=== PATIENT | female | born 1990 | race Two or more races ===

== ENCOUNTER 2022-07-28 01:13 | Inpatient (IN) | payer OTHER ==
[2022-07-28] MEDS ORDERED: Misoprostol 25 MCG (1/4 of 100 MCG) Tab ONE (07:59)
[2022-07-28] MEDS ORDERED: Sodium Chloride 0.9% 10 ML Syringe FLUSH PRN (08:04)
[2022-07-28] MEDS ORDERED: Nalbuphine HCl 10 MG/ 1ML Amp IVPUSH PRN (08:04)
[2022-07-28] MEDS ORDERED: Oxytocin/Lactated Ringers 10 UNIT/1,000 ML BAG IV SCH ×3 (08:15→16:00)
[2022-07-28] MEDS ORDERED: Misoprostol 25 MCG (1/4 of 100 MCG) Tab VAG ONE (12:07)
[2022-07-28] MEDS: Misoprostol 25 MCG (1/4 of 100 MCG) Tab VAG SCH (12:18)
[2022-07-28] MEDS: Lactated Ringers 1,000 ML IV SCH ×3 (15:49→21:00)
[2022-07-28] MEDS: Sodium Chloride 0.9% 10 ML Syringe FLUSH SCH (15:51)
[2022-07-28] MEDS ORDERED: Bupivacaine/fentaNYL/NS 100 ML Bag EPIDUR PRN (18:15)
[2022-07-28] MEDS ORDERED: ePHEDrine 50 MG/ML SDV IVPUSH PRN (18:15)
[2022-07-28] MEDS ORDERED: diphenhydrAMINE 50 MG/ML SDV IVPUSH PRN (18:15)
[2022-07-28] MEDS: fentaNYL 100 MCG/2 ML SDV EPIDUR PRN ×2 (18:40→22:38)
[2022-07-28] MEDS ORDERED: Ondansetron 4 MG/2 ML SDV IVPUSH ONE (22:17)
[2022-07-28] MEDS ORDERED: Ondansetron 4 MG/2 ML SDV ONE (22:21)
[2022-07-28] MEDS ORDERED: Dexmedetomidine 200 MCG/2 ML SDV ONE (22:25)
[2022-07-29] MEDS ORDERED: Lidocaine 1.5% with EPINEPHrine 1:200,000 5 ML Amp ONE
[2022-07-29] MEDS ORDERED: Docusate Sodium 100 MG Cap PO PRN (01:28)
[2022-07-29] MEDS ORDERED: Benzocaine/Menthol 20%-0.5% Spray 78 GM Cannister TOP PRN (01:28)
[2022-07-29] MEDS ORDERED: Acetaminophen 325 MG Tab PO PRN (01:28)
[2022-07-29] MEDS ORDERED: Witch Hazel Medicated Pads 40/Jar TOP PRN (01:28)
[2022-07-29] MEDS ORDERED: Ibuprofen 600 MG Tab PO PRN (01:28)
[2022-07-29] MEDS: Misoprostol 25 MCG (1/4 of 100 MCG) Tab VAG SCH ×2 (19:51→19:52)
[2022-07-29] MEDS: Sodium Chloride 0.9% 10 ML Syringe FLUSH SCH (19:52)
== END 2022-07-30 12:41 | disposition home or self-care (01) | DRG 807 ==
LOC: JD.OB 01:13 → OBSVTOIN 07-29 01:13 → JD.OB 07-29 01:14
PROVIDERS: ADMIT Obstetrics & Gynecology; ATTEND Obstetrics & Gynecology
PROC: 10E0XZZ Delivery of Products of Conception, External Approach (ICD-10-PCS; principal; 2022-07-29)
PROC: 0KQM0ZZ Repair Perineum Muscle, Open Approach (ICD-10-PCS; 2022-07-29)
PROC: 10907ZC Drainage of Amniotic Fluid, Therapeutic from Products of Conception, Via Natural or Artificial Opening (ICD-10-PCS; 2022-07-29)
PROC: 3E033VJ Introduction of Other Hormone into Peripheral Vein, Percutaneous Approach (ICD-10-PCS; 2022-07-29)
PROC: 3E0P7VZ Introduction of Hormone into Female Reproductive, Via Natural or Artificial Opening (ICD-10-PCS; 2022-07-29)
PROC: 3E0R3BZ Introduction of Anesthetic Agent into Spinal Canal, Percutaneous Approach (ICD-10-PCS; 2022-07-29)
PROC: 00HU33Z Insertion of Infusion Device into Spinal Canal, Percutaneous Approach (ICD-10-PCS; 2022-07-29)
DX: O48.0 Post-term pregnancy (principal); Z37.0 Single live birth; O70.1 Second degree perineal laceration during delivery; Z3A.40 40 weeks gestation of pregnancy
CPT/HCPCS: 01967; 36415; 51701; 51702; 59020; 59409; 85025; 86592; A9270-GY; J2405; J2590; J3010; J3490; J7120

== ENCOUNTER 2024-03-25 14:32 | Inpatient (IN) | payer BC ==
[~2024-03-25 14:32] MED LIST: Bupivacaine 0.25% 10 ML SDV ONE
[2024-03-25] MEDS ORDERED: Acetaminophen 325 MG Tab PO PRN (14:58)
[2024-03-25] MEDS ORDERED: Calcium Carbonate 500 MG Tab.Chew PO PRN (14:58)
[2024-03-25] MEDS ORDERED: Lidocaine 1% 50 ML MDV INJECT PRN (14:58)
[2024-03-25] MEDS ORDERED: Oxytocin/Lactated Ringers 30 UNIT/500 ML BAG IV SCH (15:00)
[2024-03-25] MEDS: Lactated Ringers 1,000 ML IV SCH (15:33)
[2024-03-25] MEDS: Ampicillin 2 GM in Sodium Chloride 0.9% 100 ML IV ONE (15:33)
[2024-03-25 15:35] LABS: BASOPHILS PERCENT AUTO 0.3 % (0.0-1.0); EOSINOPHILS PERCENT AUTO 0.3 % (0.0-6.0); HEMATOCRIT 39.9 % (37.0-47.0); HEMOGLOBIN 13.3 gm/dl (12.0-16.0); IMMATURE GRAN ABSOLUTE AUTO 0.05 K/mm3 (0.00-0.05); IMMATURE GRAN PERCENT AUTO 0.4 % (0.0-0.4); LYMPHOCYTES ABSOLUTE AUTO 1.8 K/mm3 (1.0-4.8); LYMPHOCYTES PERCENT AUTO 15.5 % (24.0-44.0); MEAN CORPUSCULAR HEMOGLOBIN 29.6 pg (28.0-32.0); MEAN CORPUSCULAR HGB CONC 33.3 g/dl (32.0-36.0); MEAN CORPUSCULAR VOLUME 88.9 fl (83.0-99.0); MEAN PLATELET VOLUME 10.4 fl (9.4-12.3); MONOCYTES ABSOLUTE AUTO 0.5 K/mm3 (0.0-0.8); MONOCYTES PERCENT AUTO 4.2 % (0.0-8.0); NEUTROPHILS ABSOLUTE AUTO 9.4 K/mm3 (1.8-7.7); NEUTROPHILS PERCENT AUTO 79.3 % (41.0-71.0); PLATELET COUNT,PLT 298 K/mm3 (150-400); RED BLOOD CELL COUNT 4.49 M/mm3 (4.10-5.30); WHITE BLOOD CELL COUNT,WBC 11.83 K/mm3 (3.9-11.3)
[2024-03-25] MEDS: Ondansetron 4 MG/2 ML SDV IVPUSH PRN (16:14)
[2024-03-25] MEDS: Nalbuphine 10 MG/ML Syringe IVPUSH PRN (16:58)
[2024-03-25] MEDS ORDERED: diphenhydrAMINE 50 MG/ML SDV IVPUSH PRN (17:11)
[2024-03-25] MEDS ORDERED: ePHEDrine 50 MG/ML SDV IVPUSH PRN (17:11)
[2024-03-25] MEDS: Bupivacaine/fentaNYL/NS 100 ML Bag EPIDUR PRN (17:18)
[2024-03-25] MEDS: fentaNYL 100 MCG/2 ML SDV EPIDUR PRN (17:18)
[2024-03-25] MEDS: Ampicillin 1 GM in Sodium Chloride 0.9% 100 ML IV SCH (19:05)
[2024-03-25] MEDS: Oxytocin/Lactated Ringers 30 UNIT/500 ML BAG IV SCH (19:45)
[2024-03-25] MEDS ORDERED: Benzocaine/Menthol 20%-0.5% Spray 78 GM Cannister TOP PRN (22:24)
[2024-03-25] MEDS ORDERED: Docusate Sodium 100 MG Cap PO PRN (22:24)
[2024-03-25] MEDS ORDERED: Witch Hazel Medicated Pads 40/Jar TOP PRN (22:24)
[2024-03-26] MEDS: Ibuprofen 600 MG Tab PO SCH (01:21)
[2024-03-27] MEDS: Acetaminophen 325 MG Tab PO PRN (14:45)
== END 2024-03-27 20:55 | disposition home or self-care (01) | DRG 560 ==
LOC: JD.OB 14:32 → JD.OBCHECK 14:32 → JD.OB 14:58 → OBSVTOIN 19:38 → JD.OB 19:39
PROVIDERS: ADMIT Obstetrics & Gynecology; ATTEND Obstetrics & Gynecology
PROC: 10E0XZZ Delivery of Products of Conception, External Approach (ICD-10-PCS; principal; 2024-03-25)
PROC: 0HQ9XZZ Repair Perineum Skin, External Approach (ICD-10-PCS; 2024-03-25)
PROC: 3E0R3BZ Introduction of Anesthetic Agent into Spinal Canal, Percutaneous Approach (ICD-10-PCS; 2024-03-25)
PROC: 00HU33Z Insertion of Infusion Device into Spinal Canal, Percutaneous Approach (ICD-10-PCS; 2024-03-25)
DX: O48.0 Post-term pregnancy (principal); Z37.0 Single live birth; O99.02 Anemia complicating childbirth; O99.824 Streptococcus B carrier state complicating childbirth; Z3A.40 40 weeks gestation of pregnancy
CPT/HCPCS: 36415; 51701; 59025; 59409; 85025; 86592; 86850; 86900; 86901; A9270-GY; J0290; J0665; J2300; J2405; J3010; J3490; J7120; J7999